=== PATIENT | female | born 1950 | race Caucasian/White ===

== ENCOUNTER 2023-01-09 12:48 | Emergency (ER) | payer MEDICARE, OTHER ==
[~2023-01-09] VITALS: Ht 157.5 cm; Wt 72.3 kg
[2023-01-09] MEDS ORDERED: CYCL-1 PO (17:18)
[2023-01-09 17:31] VITALS: BP 122/74
== END 2023-01-09 17:33 | disposition home or self-care (01) ==
LOC: ER 12:49
DX: S39.012A Strain of muscle, fascia and tendon of lower back, initial encounter (principal); W19.XXXA Unspecified fall, initial encounter; Y93.89 Activity, other specified; Y92.89 Other specified places as the place of occurrence of the external cause; Y99.8 Other external cause status
CPT/HCPCS: 72074; 72100; 72131; 72170; 99284; A4615